=== PATIENT | female | born 1965 | race Caucasian/White ===

== ENCOUNTER 2024-06-27 18:21 | Emergency (ER) | payer BC, OTHER ==
[~2024-06-27] VITALS: Ht 157.5 cm; Wt 62.6 kg
[2024-06-27] MEDS ORDERED: TRAMADOL HCL 50 MG TABLET PO STA (18:49)
== END 2024-06-27 21:41 | disposition home or self-care (01) ==
LOC: ER 18:23
DX: S62.102A Fracture of unspecified carpal bone, left wrist, initial encounter for closed fracture (principal); W19.XXXA Unspecified fall, initial encounter; Y93.89 Activity, other specified; Y92.89 Other specified places as the place of occurrence of the external cause; Y99.8 Other external cause status; M25.539 Pain in unspecified wrist